=== PATIENT | male | born 1950 | race Two or more races ===

== ENCOUNTER → 2024-09-18 14:49 | Outpatient (REF) | payer MEDICARE, OTHER, SELFPAY | LOC: RAD 14:49 | PROVIDERS: ATTENDING PHYSICIAN Surgery Vascular Surgery; FAMILY PHYSICIAN Family Medicine | DX: I65.22 Occlusion and stenosis of left carotid artery (principal) | CPT/HCPCS: 93880 ==

== ENCOUNTER → 2025-09-24 10:13 | Outpatient (REF) | payer MEDICARE, OTHER, SELFPAY | LOC: DHVS 10:13 | PROVIDERS: ATTENDING PHYSICIAN Surgery Vascular Surgery; PRIMARYCARE PHYSICIAN Family Medicine | DX: I65.22 Occlusion and stenosis of left carotid artery (principal) | CPT/HCPCS: 93880 ==